=== PATIENT | female | born 1985 | race Two or more races ===

== ENCOUNTER 2019-12-29 09:04 | Emergency (ER) | payer MEDICAID ==
[~2019-12-29] VITALS: Ht 147.3 cm; Wt 63.5 kg
[2019-12-29 09:27] VITALS: BP 152/84
--- NOTE | 2019-12-29 10:04 | NUR ---
SEEN AND EXAMINED BY .
[2019-12-29] MEDS ORDERED: IBUPROFEN 600 MG TABLET PO ONE ×2 (10:20→10:30)
--- NOTE | 2019-12-29 10:41 | NUR ---
Patient discharged to home in stable condition. Written and verbal after care instructions given. Patient verbalizes understanding of instruction.
== END 2019-12-29 10:43 | disposition home or self-care (01) ==
LOC: ER 09:05
DX: S40.011A Contusion of right shoulder, initial encounter (principal); S40.021A Contusion of right upper arm, initial encounter; S09.8XXA Other specified injuries of head, initial encounter; Z88.0 Allergy status to penicillin; V49.59XA Passenger injured in collision with other motor vehicles in traffic accident, initial encounter; Y93.89 Activity, other specified; Y92.413 State road as the place of occurrence of the external cause; Y99.8 Other external cause status